=== PATIENT | male | born 1960 | race Caucasian/White ===

== ENCOUNTER 2021-04-06 12:49 | Emergency (ER) | payer OTHER ==
[~2021-04-06] VITALS: Ht 177.8 cm; Wt 175.0 kg
[2021-04-06] MEDS ORDERED: HYDROCODON-ACE1 EA10 PO (17:30)
== END 2021-04-06 18:15 | disposition home or self-care (01) ==
LOC: ED 12:49
DX: S65.412A Laceration of blood vessel of left thumb, initial encounter (principal); V86.59XA Driver of other special all-terrain or other off-road motor vehicle injured in nontraffic accident, initial encounter; Z20.822 Contact with and (suspected) exposure to COVID-19
CPT/HCPCS: 12004; 73140; 99283-25; C9803; U0003